=== PATIENT | female | born 2000 | race Caucasian/White ===

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

== ENCOUNTER 2022-02-09 16:44 | Emergency (ER) | payer SELFPAY ==
[2022-02-09 17:12] VITALS: TEMP 99.9; BMI 18.8
[2022-02-09] MEDS ORDERED: SODIUM CHLORIDE 0.9% 500 ML INFUS.BAG IV ONE (18:04)
[2022-02-09] MEDS ORDERED: KETOROLAC TROMETHAMINE 30 MG/1 ML VIAL IVPUSH ONE (18:04)
[2022-02-09] MEDS ORDERED: DEXAMETHASONE SOD PHOSPHATE 10 MG/1 ML VIAL IVPUSH ONE (18:04)
[2022-02-09] MEDS ORDERED: DEXAMETHASONE SOD PHOSPHATE 10 MG/1 ML VIAL ONE (18:08)
[2022-02-09] MEDS ORDERED: KETOROLAC TROMETHAMINE 30 MG/1 ML VIAL ONE (18:08)
[2022-02-09 19:03] LABS: THROAT:GRP A STREP NOT DETECTED (NOTDETECTED)
[2022-02-09 19:54] VITALS: BP 109/64; PULSE 98
[2022-02-10 14:08] LABS: SARS-CoV-2 NAA Not Detected (Not Detected)
== END 2022-02-09 19:55 | disposition home or self-care (01) ==
LOC: JER 16:44
PROC: 3E033GC Introduction of Other Therapeutic Substance into Peripheral Vein, Percutaneous Approach (ICD-10-PCS; principal; 2022-02-09)
PROC: 3E0333Z Introduction of Anti-inflammatory into Peripheral Vein, Percutaneous Approach (ICD-10-PCS; 2022-02-09)
DX: J02.9 Acute pharyngitis, unspecified (principal)
CPT/HCPCS: 36415; 86308; 87651; 99284-25; C9803-CS; J1100; U0003; U0005

== ENCOUNTER 2023-03-04 23:30 | Emergency (ER) | payer OTHER ==
[2023-03-04 23:35] VITALS: BP 116/79; PULSE 90; RESP 18; TEMP 97.9; BMI 19.7
[2023-03-05] MEDS ORDERED: predniSONE 20 MG TABLET (UD) PO ONE (00:53)
[2023-03-05] MEDS ORDERED: predniSONE 20 MG TABLET (UD) ONE (01:01)
== END 2023-03-05 02:11 | disposition home or self-care (01) ==
LOC: JER 23:30 → JERFT 23:30 → JER 03-05 02:11
DX: S70.312A Abrasion, left thigh, initial encounter (principal); S80.212A Abrasion, left knee, initial encounter; L50.9 Urticaria, unspecified; W45.8XXA Other foreign body or object entering through skin, initial encounter; W19.XXXA Unspecified fall, initial encounter
CPT/HCPCS: 99283-25